=== PATIENT | male | born 1955 | race American Indian/Alaskan Native ===

== ENCOUNTER 2016-10-10 12:22 | Emergency (ER) | payer OTHER ==
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
--- NOTE | 2016-10-10 13:40 | XRay Report ---
LUMBOSACRAL SPINE, 3 VIEWS: History: Back pain Findings: The vertebral bodies, disk spaces and posterior elements are intact. No compression deformity or malalignment. The SI joints are symmetric and unremarkable. Impression: 1. No evidence for acute injury to the lumbar spine.
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
[2016-10-10] MEDS ORDERED: MOTRIN PO ONE (15:20)
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
[2016-10-10 17:10] VITALS: BP 170/89
== END 2016-10-10 17:09 | disposition home or self-care (01) ==
LOC: ED 12:22
DX: S13.4XXA Sprain of ligaments of cervical spine, initial encounter (principal); M50.320 Other cervical disc degeneration, mid-cervical region, unspecified level; I10 Essential (primary) hypertension; V49.49XA Driver injured in collision with other motor vehicles in traffic accident, initial encounter; Y93.89 Activity, other specified; Y99.8 Other external cause status; Y92.488 Other paved roadways as the place of occurrence of the external cause
CPT/HCPCS: 72100; 72125